=== PATIENT | female | born 1960 | race Caucasian/White ===

== ENCOUNTER 2018-07-24 18:01 | Emergency (ER) | payer BC ==
[2018-07-24 18:41] VITALS: BP 141/83
[2018-07-24 18:56] LABS: Influenza A Molecular POSITIVE (Negative)
--- NOTE | 2018-07-24 19:18 | UC ---
FLU HPI - HPI Summary HPI Summary: Ill since last night. Her son had the flu last week. She state she got a flu shot in the fall. - History of Current Complaint Chief Complaint: UCRespiratory Stated Complaint: SORE THROAT Time Seen by Provider: 07/24/18 18:36 Hx Obtained From: Patient ?: No Onset/Duration: Sudden Onset Severity Currently: Moderate Severity Initially: Moderate Pain Intensity: 6 Associated Signs & Symptoms: Positive: Fever, Myalgia, Cough, Sore Throat Related Hx: Possible Flu/Infectious Exposure - Son had flu last week - Allergy/Home Medications Allergies/Adverse Reactions: Allergies Allergy/AdvReac Type Severity Reaction Status Date / Time ketamine Allergy See Comment Verified 07/24/18 18:35 Sulfa (Sulfonamide Allergy Rash Verified 07/24/18 18:35 Antibiotics) Home Medications: Home Medications Acetaminophen TAB* [Tylenol TAB*] 1,000 mg PO Q12HR PRN 07/24/18 [History Confirmed 07/24/18] PMH/Surg Hx/FS Hx/Imm Hx Previously Healthy: Yes - Surgical History Surgical History: Yes Surgery Procedure, Year, and Place: L foot hammer toe. L meniscus tear repair. R meniscus tear repair - Social History Occupation: Employed Full-time Lives: With Family Alcohol Use: Weekly Substance Use Type: None Smoking Status (MU): Never Smoked Tobacco Review of Systems All Other Systems Reviewed And Are Negative: Yes Constitutional: Positive: Fever, Chills Skin: Positive: Negative Eyes: Positive: Negative ENT: Positive: Sore Throat - Mild sore throat Respiratory: Positive: Cough - Dry cough Cardiovascular: Positive: Negative Gastrointestinal: Positive: Negative Genitourinary: Positive: Negative Motor: Positive: Negative Neurovascular: Positive: Negative Musculoskeletal: Positive: Myalgia Neurological: Positive: Headache - Mild headache Psychological: Positive: Negative Is Patient Immunocompromised?: No Physical Exam Triage Information Reviewed: Yes Appearance: No Pain Distress, Well-Nourished, Ill-Appearing - Mildly ill appearing Vital Signs: Initial Vital Signs Temp 99.7 F 07/24/18 18:36 Pulse 89 07/24/18 18:36 Resp 18 07/24/18 18:36 BP 141/83 07/24/18 18:36 Pulse Ox 95 07/24/18 18:36 Vital Signs Reviewed: Yes Eye Exam: Normal ENT: Positive: Pharyngeal erythema - Mild Neck exam: Normal Respiratory Exam: Normal Cardiovascular Exam: Normal Abdominal Exam: Normal Bowel Sounds: Positive: Present Musculoskeletal Exam: Normal Neurological Exam: Normal Neurological: Positive: Alert, Muscle Tone Normal Psychological Exam: Normal Skin Exam: Normal Flu Course/Dx - Course Course Of Treatment: Comfortable here, Rapid strep test negative, rapid flu test positive. - Differential Dx/Diagnosis Differential Diagnosis/HQI/PQRI: Influenza Provider Diagnosis: Influenza A Discharge - Sign-Out/Discharge Documenting (check all that apply): Patient Departure All imaging exams completed and their final reports reviewed: No Studies - Discharge Plan Condition: Fair Disposition: HOME Prescriptions: Oseltamivir SUSP 75 MG dose* [Tamiflu SUSP 75 MG dose*] 75 mg PO BID 5 Days #10 [email or web address] Patient Education Materials: Influenza (DC) Referrals: Khalida Armendariz MD [Primary Care Provider] - Additional Instructions: Rest, increase fluids, Take Motrin every 6-8 hours as needed for fever or body aches, and may alternate with Tylenol every 4 hours as needed for fever and body aches. Definite follow up with your primary care provider in 3-4 days if no improvement or if worsening symptoms. - Billing Disposition and Condition Condition: FAIR Disposition: Home
== END 2018-07-24 19:22 | disposition home or self-care (01) ==
LOC: UCEAST 18:01
DX: J10.1 Influenza due to other identified influenza virus with other respiratory manifestations (principal); Z88.2 Allergy status to sulfonamides; Z88.4 Allergy status to anesthetic agent
CPT/HCPCS: 87651; 99202; G0463

== ENCOUNTER 2019-07-31 15:08 | Emergency (ER) | payer BC | END 2019-07-31 16:00 | disposition left against medical advice (07) | LOC: UCEAST 15:08 | DX: R05 Cough (principal); Z53.21 Procedure and treatment not carried out due to patient leaving prior to being seen by health care provider ==

== ENCOUNTER → 2019-07-31 21:31 | Emergency (ER) | payer BC ==
[2019-07-31 22:12] VITALS: BP 162/87
[2019-07-31 22:19] LABS: Influenza A Molecular Negative (Negative); Influenza B Molecular Negative (Negative)
--- NOTE | 2019-07-31 22:48 | UC ---
Throat Pain/Nasal Otoniel HPI - HPI Summary HPI Summary: 58-year-old woman comes in with chief complaint of 6 days of upper respiratory tract infection symptoms. She does have a dry cough feel some congestion in her upper chest does not feel any congestion or lower chest. Is not short of breath. Has had chills no measured fevers. She has had contact with somebody who traveled to [place] who returns mentally on July 13, 2019 who did have some upper respiratory tract infection symptoms. - History of Current Complaint Chief Complaint: UCGeneralIllness Stated Complaint: RESP Time Seen by Provider: 07/31/19 21:35 Hx Last Menstrual Period: post Pain Intensity: 3 - Allergies/Home Medications Allergies/Adverse Reactions: Allergies Allergy/AdvReac Type Severity Reaction Status Date / Time ketamine Allergy Severe See Comment Verified 07/31/19 22:05 Sulfa (Sulfonamide Allergy Mild Rash Verified 07/31/19 22:05 Antibiotics) Home Medications: Home Medications Acetaminophen TAB* [Tylenol TAB*] 1,000 mg PO Q12HR PRN 07/24/18 [History Confirmed 07/31/19] DOXYcycline CAP(*) [DOXYcycline 100MG CAP(*)] 100 mg PO BID #20 cap 07/31/19 [Rx ] PMH/Surg Hx/FS Hx/Imm Hx Previously Healthy: Yes - Surgical History Surgical History: Yes Surgery Procedure, Year, and Place: L foot hammer toe. L meniscus tear repair. R meniscus tear repair - Family History Known Family History: Positive: Non-Contributory - Social History Alcohol Use: Weekly Substance Use Type: None Smoking Status (MU): Never Smoked Tobacco Review of Systems All Other Systems Reviewed And Are Negative: Yes Constitutional: Positive: Other - SEE HPI Skin: Positive: Negative Eyes: Positive: Negative ENT: Positive: Nasal Discharge Respiratory: Positive: Cough, Other - SEE HPI Cardiovascular: Positive: Negative Gastrointestinal: Positive: Negative Motor: Positive: Negative Neurovascular: Positive: Negative Musculoskeletal: Positive: Negative Neurological/Mental Status: Positive: Negative Psychological: Positive: Negative Is Patient Immunocompromised?: No Physical Exam Triage Information Reviewed: Yes Appearance: Well-Appearing, No Pain Distress, Well-Nourished Vital Signs: Initial Vital Signs Temp 97.4 F 07/31/19 22:06 Pulse 91 07/31/19 22:06 Resp 17 07/31/19 22:06 BP 162/87 07/31/19 22:06 Pulse Ox 96 07/31/19 22:06 Vital Signs Reviewed: Yes Eye Exam: Normal Eyes: Positive: Conjunctiva Clear ENT: Positive: Pharynx normal, Nasal congestion, TMs normal Neck: Positive: Supple Respiratory: Positive: No respiratory distress, Rhonchi - Minimal rhonchi upper lung ivy lower lung ivy are clear to auscultation. Cardiovascular: Positive: RRR Musculoskeletal: Positive: Strength Intact, ROM Intact Neurological: Positive: Alert, Muscle Tone Normal Psychological: Positive: Age Appropriate Behavior Skin Exam: Normal Throat Pain/Nasal Course/Dx - Course Course Of Treatment: Patient has clear lower lung ivy and no fever. At this time this does not appear to be coronavirus. Plan is to treat symptomatically and get reevaluated if not improving or worse. DISCUSSED VIRAL VERSES BACTERIAL INFECTIONS AND THE ROLE OF ANTIBIOTICS. PATIENT PREFERS TO HAVE AN ANTIBIOTIC RX TO START IF NOT IMPROVING OR WORSE AT THIS TIME. - Differential Dx/Diagnosis Provider Diagnosis: Upper respiratory infection Discharge ED - Sign-Out/Discharge Documenting (check all that apply): Patient Departure All imaging exams completed and their final reports reviewed: No Studies - Discharge Plan Condition: Stable Disposition: HOME Prescriptions: DOXYcycline CAP(*) [DOXYcycline 100MG CAP(*)] 100 mg PO BID #20 cap Patient Education Materials: Upper Respiratory Infection (ED) Referrals: Khalida Armendariz MD [Primary Care Provider] - Additional Instructions: FOLLOW UP WITH YOUR DOCTOR IF NOT COMPLETELY IMPROVED. GET REVALUATED SOONER IF NOT IMPROVED OR WORSE OR ANY QUESTIONS OR CONCERNS. - Billing Disposition and Condition Condition: STABLE Disposition: Home
== END | disposition home or self-care (01) ==
LOC: UCEAST 21:31
DX: J06.9 Acute upper respiratory infection, unspecified (principal); Z88.4 Allergy status to anesthetic agent; Z88.2 Allergy status to sulfonamides
CPT/HCPCS: 87651; 99212; G0463

== ENCOUNTER 2020-11-30 06:27 | Observation (INO) ==
[~2020-11-30 06:27] MED LIST: Buffered Lidocaine 1% SYRIN 1 ml INTRADERM ONE; Lactated Ringers 1000 ml BAG 1,000 ML IV SCH; ceFAZolin 2 GM PREMIX 2 GM/50 ML BAG ONE
[2020-11-30] MEDS ORDERED: Midazolam 5 mg/5 ml VIAL 1 mg/ml 5 ml VIAL (5 mg) ONE (06:46)
[2020-11-30] MEDS ORDERED: Bupivacaine 0.5% SDV PF 30ML VIAL ONE (06:46)
[2020-11-30] MEDS ORDERED: Dexamethasone IV 4 MG/ML VIAL 1 ml VIAL ONE ×2 (06:47→06:56)
[2020-11-30] MEDS ORDERED: fentaNYL 100 mcg/2 ml 50 MCG/ML VIAL ONE ×2 (06:56→11:11)
[2020-11-30] MEDS ORDERED: Rocuronium 50 mg VIAL 10 mg/ml 5 ml VIAL (50 mg) ONE ×2 (06:56→08:51)
[2020-11-30] MEDS ORDERED: Lidocaine 2% PF 5 ML VIAL ONE (06:56)
[2020-11-30] MEDS ORDERED: Ondansetron 4 mg VIAL 2 MG/ML 2 ml VIAL ONE (06:56)
[2020-11-30] MEDS ORDERED: Propofol 10 MG/ML 20 ML BTL ONE (06:56)
[2020-11-30] MEDS ORDERED: Lidocaine 1% MPF 5 ML VIAL ONE (06:57)
[2020-11-30] MEDS ORDERED: HYDROmorphone 1 MG/1 ML SYRINGE ONE ×2 (06:59→08:39)
[2020-11-30] MEDS ORDERED: ROPIVACAINE 5 MG/ML 30 ML BTL (0.5%) ONE (07:13)
[2020-11-30] MEDS ORDERED: Propofol 10 mg/ml 100 ML BTL 100 ML ONE (07:24)
[2020-11-30] MEDS ORDERED: Naloxone 0.4 mg VIAL 0.4 mg/ml 1 ml VIAL IV PRN (08:39)
[2020-11-30] MEDS ORDERED: diPHENhydraMINE IV 50 MG/ML 1 ml VIAL (BENADRYL) IV PRN ×2 (08:39→11:04)
[2020-11-30] MEDS ORDERED: fentaNYL 100 mcg/2 ml 50 MCG/ML VIAL IV PRN (08:39)
[2020-11-30] MEDS ORDERED: HYDROmorphone 1 MG/1 ML SYRINGE IV PRN (08:39)
[2020-11-30] MEDS ORDERED: DiMENhydriNATE IV 50 mg/ml 1 ml VIAL IV PUSH PRN (08:39)
[2020-11-30] MEDS ORDERED: Acetaminophen IV 1 GM/100ML 100 ML IV ONE (09:47)
[2020-11-30] MEDS ORDERED: Morphine 2 MG/ML SYRINGE IV PRN (11:04)
[2020-11-30] MEDS ORDERED: Lactulose 30 ml UDC PO PRN (11:04)
[2020-11-30] MEDS ORDERED: Ondansetron 4 mg VIAL 2 MG/ML 2 ml VIAL IV PRN (11:04)
[2020-11-30] MEDS ORDERED: Magnesium Hydroxide LIQ 30 ML UDC PO PRN (11:04)
[2020-11-30] MEDS ORDERED: Ondansetron ODT 4 mg TAB 4 MG TAB PO PRN (11:04)
[2020-11-30] MEDS ORDERED: diPHENhydraMINE 25 mg TAB PO PRN (11:04)
[2020-11-30] MEDS ORDERED: Lactated Ringers 1000 ml BAG 1,000 ML IV SCH (12:00)
[2020-11-30 15:04] VITALS: BP 116/77
[2020-11-30] MEDS ORDERED: ceFAZolin 1 GM ADVAN 1 GM in NS 0.9% 50 ML 50 ML IVPB SCH (16:00)
[2020-11-30] MEDS ORDERED: Magnesium Hydroxide LIQ 30 ML UDC PO SCH (21:00)
[2020-12-01] MEDS ORDERED: Vitamin THERAPEUTIC TAB PO SCH (09:00)
== END 2020-11-30 17:05 | disposition home or self-care (01) ==
LOC: SSU 06:27 → OR 06:27
PROVIDERS: ADMIT Orthopaedic Surgery Adult Reconstructive Orthopaedic Surgery; ATTEND Orthopaedic Surgery Adult Reconstructive Orthopaedic Surgery